=== PATIENT | female | born 1990 | race African-American/Black ===

== ENCOUNTER 2019-11-11 19:41 | Emergency (ER) | payer OTHER ==
[~2019-11-11] VITALS: Ht 167.6 cm; Wt 104.3 kg
[~2019-11-11 19:41] MED LIST: CIPRO250 M1 PO; FLAGYL500 MG PO; FLEXERIL PO; IBUPROFEN 600600 M1 PO; NORCO 5-325 TA1 EACH PO
[2019-11-11] MEDS ORDERED: PROGRAF1 M1 PO (20:25)
[2019-11-11] MEDS ORDERED: MYFORTIC360 MG PO (20:25)
[2019-11-11] MEDS ORDERED: APAP W/CODEINE1 TA2 PO (20:46)
[2019-11-11 20:57] VITALS: BP 149/76
== END 2019-11-11 20:57 | disposition home or self-care (01) ==
LOC: ER 19:41
DX: K02.9 Dental caries, unspecified (principal); Z94.4 Liver transplant status; Z79.899 Other long term (current) drug therapy; Z88.8 Allergy status to other drugs, medicaments and biological substances